=== PATIENT | female | born 1990 ===

== ENCOUNTER 2024-03-17 10:11 | Emergency (ER) ==
[2024-03-17] MEDS ORDERED: Ketorolac Tromethamine 30 MG (1 mL) VIAL ONE (11:31)
[2024-03-17] MEDS ORDERED: Vancomycin (BATCH) 2 GM/500 ML BAG ONE (11:34)
[2024-03-17 12:51] LABS: #Basophils 0.04 10x3/uL (0.0-0.2); %Basophils 0.8 % (0.0-1.0); %Eosinophils 1.4 % (0.0-10.0); %Lymphocytes 27.5 % (21.0-51.0); %Monocytes 11.9 % (0.0-10.0); Hematocrit 36.2 % (36.0-47.0); Mean Corpuscular HGB CONC 33.1 g/dL (32.0-36.0); Mean Corpuscular Hemoglobin 27.2 pg (27.0-31.0); Mean Corpuscular Volume 82.1 fL (78.0-98.0); Mean Platelet Volume 10.9 fL (7.4-10.4); Platelet Count 177 10x3/uL (130-400); RBC Distribution Width 12.9 % (11.5-14.5); Red Blood Cell (RBC) Count 4.41 mill/uL (4.20-5.40)
[2024-03-17 13:11] LABS: ALT (SGPT) 14 U/L (8-55); AST (SGOT) 17 U/L (5-34); Albumin 3.7 g/dL (3.5-5.0); Alkaline Phosphatase 75 U/L (40-110); Anion Gap 14 mmol/L (10-20); BUN (Urea Nitrogen) 9 mg/dL (7.0-18.7); Bilirubin, Total 0.6 mg/dL (0.2-1.2); CK (CPK) 95 U/L (29-168); Calc. Creatinine Clearance 0 mL/min (70-130); Calcium 9.3 mg/dL (7.8-10.44); Carbon Dioxide 23 mmol/L (22-29); Chloride 105 mmol/L (98-107); Estimated GFR 99; Glucose 84 mg/dL (70-105); Potassium 3.4 mmol/L (3.5-5.1); Protein, Total 7.7 g/dL (6.0-8.3); Sodium 139 mmol/L (136-145)
[2024-03-17] MEDS ORDERED: Furosemide 40 MG (4 mL) VIAL ONE (14:04)
== END 2024-03-17 15:26 ==
LOC: ERS 10:11 → EEVIPCON 10:11 → EDBD 10:11 → ERS 15:26
DX: L03.115 Cellulitis of right lower limb (principal); R60.9 Edema, unspecified; I10 Essential (primary) hypertension
CPT/HCPCS: 80053; 82550; 83605; 83880; 85025; 85379; 96365; 96366; 96375; J1885; J1940; J3370

== ENCOUNTER 2024-04-08 14:38 | Inpatient (IN) | payer OTHER ==
[~2024-04-08 14:38] MED LIST: Iopamidol-370 76% 500 ML MDV (1 ML CHARGE) ONE
[2024-04-08 15:17] LABS: #Basophils 0.06 10x3/uL (0.0-0.2); #Eosinphils Less than 0.03 10x3/uL (0.0-0.7); %Basophils 0.5 % (0.0-1.0); %Eosinophils 0.2 % (0.0-10.0); %Lymphocytes 15.3 % (21.0-51.0); %Monocytes 6.8 % (0.0-10.0); %Neutrophils 76.8 % (42.0-75.0); Hemoglobin 11.5 g/dL (12.0-16.0); Mean Corpuscular HGB CONC 33.8 g/dL (32.0-36.0); Mean Corpuscular Hemoglobin 26.6 pg (27.0-31.0); Mean Corpuscular Volume 78.7 fL (78.0-98.0); Mean Platelet Volume 10.6 fL (7.4-10.4); Platelet Count 216 10x3/uL (130-400); RBC Distribution Width 13.1 % (11.5-14.5); Red Blood Cell (RBC) Count 4.32 mill/uL (4.20-5.40)
[2024-04-08] MEDS ORDERED: Cefepime 2 GM VIAL ONE (15:17)
[2024-04-08] MEDS ORDERED: Clindamycin/D5W 600 mg/50 ml Premix Bag ONE (15:17)
[2024-04-08 15:39] LABS: ALT (SGPT) 13 U/L (8-55); AST (SGOT) 15 U/L (5-34); Albumin 3.6 g/dL (3.5-5.0); Alkaline Phosphatase 76 U/L (40-110); Anion Gap 12 mmol/L (10-20); BUN (Urea Nitrogen) 21 mg/dL (7.0-18.7); Bilirubin, Total 0.9 mg/dL (0.2-1.2); Calc. Creatinine Clearance 0 mL/min (70-130); Carbon Dioxide 28 mmol/L (22-29); Chloride 95 mmol/L (98-107); Estimated GFR 62; Globulin 3.8 g/dL (2.4-3.5); Glucose 94 mg/dL (70-105); Potassium 2.6 mmol/L (3.5-5.1); Protein, Total 7.4 g/dL (6.0-8.3); Sodium 132 mmol/L (136-145)
[2024-04-08] MEDS ORDERED: Potassium Chloride 20 MEQ TAB ONE (16:03)
[2024-04-08 16:20] LABS: Magnesium 2.1 mg/dL (1.6-2.6)
[2024-04-08] MEDS ORDERED: Ondansetron ODT 4 MG TAB PO PRN (17:01)
[2024-04-08] MEDS ORDERED: Ondansetron PF 4 MG/2 ML Vial IVP PRN (17:01)
[2024-04-08 20:22] VITALS: BMI 50.9
[2024-04-08] MEDS: Vancomycin (BATCH) 2.5 GM in Premix 1 BAG IVPB SCH (20:25)
[2024-04-08] MEDS: Clindamycin/D5W 900 MG in Premix 1 BAG IVPB SCH (20:56)
[2024-04-08] MEDS: Enoxaparin 40 MG (0.4 mL) SYRINGE SC SCH (20:59)
[2024-04-08] MEDS: Potassium Chloride 20 MEQ TAB PO SCH (20:59)
[2024-04-08] MEDS ORDERED: Potassium Chloride 20 MEQ TAB PO SCH (22:00)
[2024-04-08] MEDS: Acetaminophen 325 MG TAB PO PRN (22:31)
[2024-04-09] MEDS: Polyethylene Glycol 3350 17 GM Packet PO SCH (00:18)
[2024-04-09 00:36] LABS: Pregnancy Test - Urine (BHCG) Negative (Negative); Pregu Control Background? CLEAR/WHITE (CLR/WHITE); Pregu Control Bar Appear? YES (CONTROL BAR); Specific Gravity 1.018 (1.002-1.036)
[2024-04-09 00:44] LABS: Amphetamine Not Detected (NotDetected); Barbiturates Screen Not Detected (NotDetected); Benzodiazepine Screen Not Detected (NotDetected); Cocaine Metabolite Screen Not Detected (NotDetected); Methadone Not Detected (NotDetected); Methamphetamine Not Detected (NotDetected); Opiate Screen Not Detected (NotDetected); Oxycodone Screen Not Detected (NotDetected); Phencyclidine (PCP) Not Detected (NotDetected); THC/Cannabinoid Screen Not Detected (NotDetected); Tricyclic Screen Not Detected (NotDetected)
[2024-04-09 01:25] LABS: Anion Gap 11 mmol/L (10-20); BUN (Urea Nitrogen) 18 mg/dL (7.0-18.7); Calc. Creatinine Clearance 214 mL/min (70-130); Calcium 8.6 mg/dL (7.8-10.44); Carbon Dioxide 25 mmol/L (22-29); Chloride 97 mmol/L (98-107); Estimated GFR 83; Glucose 134 mg/dL (70-105); Potassium 3.1 mmol/L (3.5-5.1); Sodium 130 mmol/L (136-145)
[2024-04-09] MEDS: Clindamycin/D5W 900 MG in Premix 1 BAG IVPB SCH (03:36)
[2024-04-09] MEDS: Potassium Chloride 20 MEQ TAB PO SCH ×2 (03:36→07:56)
[2024-04-09] MEDS: Ibuprofen 800 MG TAB PO PRN (03:41)
[2024-04-09] MEDS: Pantoprazole DR 40 MG TAB PO SCH (07:56)
[2024-04-09] MEDS: DULoxetine 60 MG CAP PO SCH (07:56)
[2024-04-09 08:24] LABS: Phosphorus 3.1 mg/dL (2.3-4.7)
[2024-04-09 08:25] LABS: Hemoglobin A1c 5.6 % (4.0-6.0)
[2024-04-09 08:27] LABS: ALT (SGPT) 11 U/L (8-55); AST (SGOT) 14 U/L (5-34); Albumin 3.1 g/dL (3.5-5.0); Alkaline Phosphatase 65 U/L (40-110); Anion Gap 13 mmol/L (10-20); BUN (Urea Nitrogen) 16 mg/dL (7.0-18.7); Bilirubin, Total 0.6 mg/dL (0.2-1.2); Calc. Creatinine Clearance 221 mL/min (70-130); Calcium 8.7 mg/dL (7.8-10.44); Carbon Dioxide 23 mmol/L (22-29); Cardiac Risk 4.2 (Less than 4.5); Chloride 100 mmol/L (98-107); Cholesterol 129 mg/dl (< 200 Desired); Estimated GFR 87; Globulin 3.4 g/dL (2.4-3.5); Glucose 128 mg/dL (70-105); HDL Cholesterol 31 mg/dL (>60 Neg Risk); LDL Cholesterol, Calculated 78 mg/dL; Potassium 3.3 mmol/L (3.5-5.1); Protein, Total 6.5 g/dL (6.0-8.3); Sodium 133 mmol/L (136-145); Triglycerides 101 mg/dL (Less than 150)
[2024-04-09 08:31] LABS: #Basophils 0.04 10x3/uL (0.0-0.2); %Basophils 0.6 % (0.0-1.0); %Eosinophils 0.8 % (0.0-10.0); %Lymphocytes 29.1 % (21.0-51.0); %Monocytes 9.9 % (0.0-10.0); %Neutrophils 58.6 % (42.0-75.0); Hematocrit 31.5 % (36.0-47.0); Hemoglobin 10.6 g/dL (12.0-16.0); Mean Corpuscular HGB CONC 33.7 g/dL (32.0-36.0); Mean Corpuscular Hemoglobin 26.5 pg (27.0-31.0); Mean Corpuscular Volume 78.8 fL (78.0-98.0); Mean Platelet Volume 10.9 fL (7.4-10.4); Platelet Count 172 10x3/uL (130-400); RBC Distribution Width 13.2 % (11.5-14.5)
[2024-04-09 09:11] LABS: HBCM Index 0.08 S/CO (0-0.79); HBsAg Index 0.24 S/CO (0-0.99); Hep A IgM AB NONREACTIVE (NonReactive); Hep A IgM S/CO 0.21 S/CO (0-0.79); Hep B Surf Ag NONREACTIVE S/CO (NonReactive); Hep C IgG Ab Reflex HepC Qnt S/CO (NonReactive); Hepatitis B Core IgM Abs NONREACTIVE S/CO (NonReactive); Thyroid Stimulating Hormone 2.8662 uIU/mL (0.35-4.94)
[2024-04-09] MEDS: Famotidine 20 MG TAB PO PRN (10:28)
[2024-04-09] MEDS: Polyethylene Glycol 3350 17 GM Packet PO PRN (10:32)
[2024-04-09 11:10] VITALS: BMI 50.9
[2024-04-09] MEDS: Ibuprofen 800 MG TAB PO SCH (11:59)
[2024-04-09] MEDS: Calcium Carbonate 500 MG ChewTAB PO SCH (20:25)
[2024-04-10 07:31] LABS: #Basophils Less than 0.03 10x3/uL (0.0-0.2); %Basophils 0.5 % (0.0-1.0); %Eosinophils 3.9 % (0.0-10.0); %Lymphocytes 41.9 % (21.0-51.0); %Monocytes 12.5 % (0.0-10.0); %Neutrophils 40.7 % (42.0-75.0); Hematocrit 30.4 % (36.0-47.0); Hemoglobin 9.9 g/dL (12.0-16.0); Mean Corpuscular HGB CONC 32.6 g/dL (32.0-36.0); Mean Corpuscular Volume 82.8 fL (78.0-98.0); Mean Platelet Volume 11.1 fL (7.4-10.4); Platelet Count 167 10x3/uL (130-400); RBC Distribution Width 13.2 % (11.5-14.5); Red Blood Cell (RBC) Count 3.67 mill/uL (4.20-5.40)
[2024-04-10 07:58] LABS: ALT (SGPT) 10 U/L (8-55); AST (SGOT) 11 U/L (5-34); Albumin 2.8 g/dL (3.5-5.0); Alkaline Phosphatase 63 U/L (40-110); Anion Gap 12 mmol/L (10-20); BUN (Urea Nitrogen) 12 mg/dL (7.0-18.7); Bilirubin, Total 0.2 mg/dL (0.2-1.2); Calc. Creatinine Clearance 280 mL/min (70-130); Calcium 8.7 mg/dL (7.8-10.44); Carbon Dioxide 24 mmol/L (22-29); Chloride 107 mmol/L (98-107); Estimated GFR 115; Globulin 3.3 g/dL (2.4-3.5); Glucose 122 mg/dL (70-105); Potassium 3.9 mmol/L (3.5-5.1); Protein, Total 6.1 g/dL (6.0-8.3); Sodium 139 mmol/L (136-145)
[2024-04-11] MEDS: Polyethylene Glycol 3350 17 GM Packet PO SCH (09:11)
[2024-04-11] MEDS: Clindamycin 150 MG CAP PO SCH (09:12)
[2024-04-11] MEDS: Senokot S 8.6-50 MG TAB PO SCH (09:12)
[2024-04-11 09:37] VITALS: BP 118/74; TEMP 97.7
[2024-04-11 11:04] LABS: Syphilis Antibody Nonreactive (Nonreactive); Syphilis Antibody Index 0.07 S/CO (<1.00 Non-Reactive)
[2024-04-11 11:33] LABS: #Basophils 0.04 10x3/uL (0.0-0.2); %Eosinophils 4.9 % (0.0-10.0); %Lymphocytes 45.2 % (21.0-51.0); %Monocytes 10.3 % (0.0-10.0); %Neutrophils 38.1 % (42.0-75.0); Hematocrit 31.5 % (36.0-47.0); Hemoglobin 10.1 g/dL (12.0-16.0); Mean Corpuscular HGB CONC 32.1 g/dL (32.0-36.0); Mean Corpuscular Hemoglobin 26.6 pg (27.0-31.0); Mean Corpuscular Volume 83.1 fL (78.0-98.0); Platelet Count 171 10x3/uL (130-400); RBC Distribution Width 13.2 % (11.5-14.5); Red Blood Cell (RBC) Count 3.79 mill/uL (4.20-5.40)
[2024-04-11 11:55] LABS: ALT (SGPT) 8 U/L (8-55); AST (SGOT) 12 U/L (5-34); Albumin 2.8 g/dL (3.5-5.0); Alkaline Phosphatase 53 U/L (40-110); Anion Gap 15 mmol/L (10-20); BUN (Urea Nitrogen) 11 mg/dL (7.0-18.7); Bilirubin, Total 0.2 mg/dL (0.2-1.2); Calc. Creatinine Clearance 288 mL/min (70-130); Calcium 8.9 mg/dL (7.8-10.44); Carbon Dioxide 22 mmol/L (22-29); Chloride 106 mmol/L (98-107); Estimated GFR 119; Globulin 3.4 g/dL (2.4-3.5); Glucose 93 mg/dL (70-105); Potassium 4.5 mmol/L (3.5-5.1); Protein, Total 6.2 g/dL (6.0-8.3); Sodium 138 mmol/L (136-145)
[2024-04-11] MEDS: Linezolid 600 MG TAB PO SCH (12:43)
[2024-04-11 19:13] LABS: HIV-1 Quantitative, RNA PCR <20 copies/mL (.)
[2024-04-13 00:37] LABS: Hep C PCR-Quant HCV Not Detected IU/mL (.)
== END 2024-04-11 17:49 | DRG 603 ==
LOC: ERS 14:38 → OBSVTOIN 17:00 → MSONC 17:00 → EEVIPCON 17:00
PROVIDERS: ADMIT Family Medicine; ATTEND Family Medicine
DX: L03.115 Cellulitis of right lower limb (principal); Z68.43 Body mass index [BMI] 50.0-59.9, adult; E87.1 Hypo-osmolality and hyponatremia; N17.9 Acute kidney failure, unspecified; E66.9 Obesity, unspecified; E87.6 Hypokalemia; F41.9 Anxiety disorder, unspecified; F32.A Depression, unspecified; I89.0 Lymphedema, not elsewhere classified; K59.00 Constipation, unspecified; T50.1X5A Adverse effect of loop [high-ceiling] diuretics, initial encounter; K21.9 Gastro-esophageal reflux disease without esophagitis; Z79.899 Other long term (current) drug therapy
CPT/HCPCS: 36415; 36416; 80053; 80061; 80074; 80306; 81025; 83036; 83605; 83735; 84100; 84443; 85025; 86780; 87040; 87522; 87536; 93306; 97139; J0692; J1650; J3370; J3490; Q9967